=== PATIENT | female | born 1980 | race African-American/Black ===

== ENCOUNTER 2017-10-15 01:11 | Emergency (ER) | payer OTHER ==
[2017-10-15 01:36] VITALS: BP 129/80; PULSE 80; TEMP 98.5; BMI 37.5
--- NOTE | 2017-10-15 02:35 | PDOC ---
History of Present Illness - General Chief Complaint: Injury Stated Complaint: MIDDLE RIGHT FINGER INJURY Time Seen by Provider: 10/15/17 02:30 History Source: Patient Exam Limitations: No Limitations - History of Present Illness Initial Comments: This is a 37 year-old right hand dominant female with h/o hidradinitis suppurativa with MRSA infections requiring many courses of antibiotics ( currently on ciprofloxacin) and prior I&D x2 who p/w right middle finger pain and swelling at the cuticle consistent with her prior abscesses. The pain is burning/sharp 8/10 and radiates up her finger, and worsens with movement of the finger. She additionally notes swelling which has been worsening and spreading proximally up the finger. She denies any fever, chills, nausea, vomiting, headache, chest pain, SOB, streaking redness, lesions or drainage from the finger, or other symptoms. 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 However, she did not note any breaks in the skin at that time. Past History - Past Medical History Allergies/Adverse Reactions: Allergies Allergy/AdvReac Type Severity Reaction Status Date / Time ibuprofen Allergy Hives Verified 05/30/15 14:51 Penicillins Allergy Hives Verified 05/30/15 14:51 Home Medications: Ambulatory Orders Ciprofloxacin [Cipro (Restricted To Id)] 500 mg PO BID 10/15/17 Sulfamethoxazole/Trimethoprim [Bactrim Ds -] 1 tab PO BID #14 tablet 10/15/17 - Suicide/Smoking/Psychosocial Hx Smoking History: Current every day smoker Information on smoking cessation initiated: No Hx Alcohol Use: Yes Drug/Substance Use Hx: No Substance Use Type: None Review of Systems - Review of Systems Able to Perform ROS?: Yes Constitutional: No: Chills, Fever, Unexplained wgt Loss HEENTM: No: Nose Congestion, Throat Pain Respiratory: No: Cough, Shortness of Breath Cardiac (ROS): No: Chest Pain, Palpitations ABD/GI: No: Constipated, Diarrhea, Nausea, Vomiting : No: Burning, Dysuria Musculoskeletal: Yes: Other (right middle finger pain/swelling). No: Back Pain , Neck Pain Integumentary: No: Bruising, Rash Neurological: No: Headache, Numbness, Tingling, Weakness, Dizziness Endocrine: No: Unexplained Weight Gain, Unexplained Weight Loss *Physical Exam - Vital Signs Last Vital Signs Temp Pulse Resp BP Pulse Ox 98.5 F 80 17 129/80 100 10/15/17 01:10/15/17 01:10/15/17 01:10/15/17 01:10/15/17 01:26 - Physical Exam General Appearance: Yes: Nourished, Obese, Other (pleasant adult female who appears comfortable and nontoxic, answering questions appropriately). No: Apparent Distress HEENT: positive: EOMI, KADIE, Normal ENT Inspection, Normal Voice, Hearing Grossly Normal. negative: Scleral Icterus (R), Scleral Icterus (L), Nasal Congestion Neck: positive: Trachea midline, Supple. negative: Tender, Rigid Respiratory/Chest: positive: Lungs Clear, Normal Breath Sounds. negative: Respiratory Distress, Crackles, Rhonchi, Stridor, Wheezing Cardiovascular: positive: Regular Rhythm, Regular Rate, S1, S2. negative: Edema , JVD, Murmur Comments:: bilateral radial pulses equal Gastrointestinal/Abdominal: positive: Normal Bowel Sounds, Soft. negative: Tender, Organomegaly, Pulsatile Mass, Guarding Musculoskeletal: positive: Normal Inspection. negative: Decreased Range of Motion, Vertebral Tenderness Extremity: positive: Normal Capillary Refill, Normal Inspection, Normal Range of Motion, Other (right middle finger paronychia without obvious felon but with finger pad swelling, NOT holding the finger in flexion, NO ttp along the proximal tendon sheath of this finger, +ttp along the tendon sheath from the tip of the finger extending to the PIP but this is difficult to differentiate from pain d/t the actual paronychia, mild soft tissue swelling extening to MCP on the right, no streaking erythema, no lesions, no active drainage). negative : Cyanosis Integumentary: positive: Normal Color, Dry, Warm, Erythema (immediately surrounding paronychia). 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 Initial Vital Signs Temp Pulse Resp BP Pulse Ox 98.5 F 80 17 129/80 100 10/15/17 01:26 10/15/17 01:26 10/15/17 01:26 10/15/17 01:26 10/15/17 01:26 Exam: right middle finger paronychia without obvious felon but with finger pad swelling, +soft tissue swelling extending to the MCP, NOT holding the finger in flexion, NO ttp along the proximal tendon sheath of this finger, +ttp along the tendon sheath from the tip of the finger extending to the PIP but this is difficult to differentiate from pain d/t the actual paronychia. DDX IBNLT: simple paronychia, w/wo felon, flexor tenosynovitis, deeper space hand infection, gout, herpes zoster, psoriatic or rheumatoid arthritis, trauma, pseudogout, etc. W/U ordered: Right hand/finger XR TX ordered: Tylenol PO Paronychia is incised and drained as noted in procedure section, no local or nerve block, no complications. Reassessment: repeat exam is benign, patient able to move finger and feel fingertip. The patient has gotten significant relief of symptoms with ED medications and I& D. Assessment is not concerning for emergency-level pathology at this time. The patient is appropriate for discharge with close outpatient follow up. They are comfortable with this plan and will follow up with their PCP in 1-3 days. E-Rx is sent to the patient's pharmacy for Bactrim course. Return precautions are discussed and they will come back to the ER if necessary. *DC/Admit/Observation/Transfer Diagnosis at time of Disposition: Paronychia - Discharge Dispostion Disposition: HOME Condition at time of disposition: Stable Decision to Admit order: No - Prescriptions Prescriptions: Sulfamethoxazole/Trimethoprim [Bactrim Ds -] 1 tab PO BID #14 tablet - Referrals Referrals: Marsha Tirado MD [Primary Care Provider] - - Patient Instructions Printed Discharge Instructions: DI for Paronychia Additional Instructions: You were seen in the ER for a finger infection called a paronychia. We did a small incision and drainage of the infection, and removed the fluid. After our assessment, we do not believe you are having a medical emergency at this time, and we believe you are safe to go home. We are sending an electronic prescription for an antibiotic to your pharmacy. Please only pick this up if you are not feeling better in the next 2 days, and if you start taking it, do finish the whole course. It is fine to take this while finishing your current prescription for ciprofloxacin. Please follow up with your regular PCP doctor in 1-3 days. Call their clinic as soon as possible, tell them you were seen in the ER, and tell them you need an appointment. If you have any new or worsening symptoms (like worsening pain and swelling, swelling extending into the hand or wrist, inability to move the affected finger, or streaking redness migrating up your forearm), please come back to the ER at any time (24 hours a day). If you are having severe or life threatening symptoms, or symptoms that make it unsafe to drive or have someone drive you, please call 911. - Post Discharge Activity Forms/Work/School Notes: Back to Work
[2017-10-15] MEDS ORDERED: ACETAMINOPHEN 500 MG TABLET (FP) PO ONE (03:00)
[2017-10-15] MEDS ORDERED: ACETAMINOPHEN 325 MG TABLET (FP) ONE (03:15)
--- NOTE | 2017-10-15 04:10 | PDOC ---
Attending Attestation - Resident Resident Name: Irena Márquez - ED Attending Attestation I have performed the following: I have examined & evaluated the patient, The case was reviewed & discussed with the resident, I agree w/resident's findings & plan, Exceptions are as noted <Jose Bragg - Last Filed: 10/15/17 04:10> - HPI HPI: 10/15/17 04:11 The patient is a 37 year old female with a past medical history of hidradenitis suppurativa with MRSA infections and prior I&D x2 who presents with right middle finger infection and pain. The patient states that one month ago she had a manicure and she recently peeled off the gel nail kiswahili just prior to onset of symptoms. She describes the pain as 8/10 in severity, non-radiating with associated swelling and erythema. She reports that the swelling has been spreading since symptoms began. She did not try to treat symptoms at home. She denies fever, chills, nausea, and vomiting. She denies headache, chest pain, numbness, or weakness. - Physicial Exam PE: 10/15/17 04:11 GENERAL: Well-appearing, well-nourished. No apparent distress. HEENT: Normocephalic, atraumatic. PERRL, EOM intact. CARDIOVASCULAR: Normal S1, S2. Regular rate and rhythm. PULMONARY: Clear to auscultation bilaterally. ABDOMEN: Soft, non-distended, non-tender. EXTREMITIES: (+) erythematous and edematous right hand third digit Normal ROM in all four extremities. No gross deformities. SKIN: Warm, dry. No rash NEUROLOGICAL: No focal neurological deficits. - Medical Decision Making 10/15/17 04:11 Documentation prepared by Sen Hubbard, acting as medical artist for Jose Bragg DO. <Sen Hubbard - Last Filed: 10/15/17 04:11>
== END 2017-10-15 04:02 | disposition home or self-care (01) ==
LOC: JER 01:11
PROC: 0H9MXZZ Drainage of Right Foot Skin, External Approach (ICD-10-PCS; principal; 2017-10-15)
DX: L03.011 Cellulitis of right finger (principal); Z86.14 Personal history of Methicillin resistant Staphylococcus aureus infection
CPT/HCPCS: 99281-25

== ENCOUNTER 2018-04-07 10:42 | Inpatient (IN) | payer OTHER ==
--- NOTE | 2018-04-07 11:05 | PDOC ---
History of Present Illness - History of Present Illness Initial Comments: This patient is a 38 year old female with a PMHx of anemia, eczema, Hidradenitis suppurativa (HS), and was referred to the ED for admission presents to the ER for infected hidradenitis. Patient states that she has been diagnosed with HS for over an year now since she has gain a significant amount of weight. Patient states that she has pus filled bumps on in her b/l armpits, underneath b/l breasts, on her left groin and left buttox cheek. She reports that they have all been draining. She states that she saw Dr. Rucker yesterday who told her that she will need to be admitted. ID: Dr. Rucker Allergies: doxycycline (mild- sneezes), penicillin (hives) Social Hx: denies cigarette use, social drinking. <Denise Varma - Last Filed: 04/07/18 13:50> <Dale White - Last Filed: 04/07/18 15:28> - General Chief Complaint: Wound Stated Complaint: PCP ADMIT Time Seen by Provider: 04/07/18 11:04 Past History <Denise Varma - Last Filed: 04/07/18 13:50> - Past Medical History Anemia: Yes COPD: No CHF: No Kidney Stones: No Psychiatric Problems: No Other medical history: eczema,hydradenitis - Surgical History GI Surgery: No Lung Surgery: No Neurologic Surgery: No - Immunization History Immunization Up to Date: No - Suicide/Smoking/Psychosocial Hx Smoking History: Never smoked Have you smoked in the past 12 months: No Information on smoking cessation initiated: No Hx Alcohol Use: No Drug/Substance Use Hx: No Substance Use Type: None <Dale White - Last Filed: 04/07/18 15:28> - Past Medical History Allergies/Adverse Reactions: Allergies Allergy/AdvReac Type Severity Reaction Status Date / Time doxycycline Allergy Hives Verified 04/07/18 12:26 ibuprofen Allergy Hives Verified 05/30/15 14:51 Penicillins Allergy Hives Verified 05/30/15 14:51 Home Medications: Ambulatory Orders NK [No Known Home Medication] 04/07/18 Review of Systems - Review of Systems Comments:: CONSTITUTIONAL: No fever, no chills, no fatigue EYES: No visual changes ENT: No ear pain, no sore throat CARDIOVASCULAR: No chest pain, no palpitations RESPIRATORY: No cough, no SOB GI: No abdominal pain, no nausea, no vomiting, no constipation, no diarrhea GENITOURINARY: No dysuria, no frequency, no hematuria MUSKULOSKELETAL: No back pain, no joint pain, no myalgias SKIN: + pus filled pimples on b/l armpits, underneath b/l breasts, left groin and left buttox cheek. NEURO: No headache <Denise Varma - Last Filed: 04/07/18 13:50> *Physical Exam - Vital Signs Last Vital Signs Temp Pulse Resp BP Pulse Ox 98.8 F 99 H 18 112/67 99 04/07/18 10:45 04/07/18 10:45 04/07/18 10:45 04/07/18 10:45 04/07/18 10:45 - Physical Exam Comments: CONSTITUTIONAL: Well-appearing; well-nourished; in no apparent distress HEAD: Normocephalic; atraumatic EYES: PERRL; EOM intact NECK: Supple; nontender; no cervical lymphadenopathy CARD: Normal S1, S2; no murmurs, rubs, or gallops RESP: Normal chest excursion with respiration; breath sounds clear and equal bilaterally; no wheezes, rhonchi, or rales ABD: Soft, non-distended; non-tender; no palpable organomegaly, no palpable hernias EXT: Normal ROM in all four extremities; non-tender to palpation; distal pulses intact NEURO: No focal neurological deficiencies. SKIN: see MDM <Denise Varma - Last Filed: 04/07/18 13:50> - Vital Signs Last Vital Signs Temp Pulse Resp BP Pulse Ox 98.8 F 99 H 18 112/67 99 04/07/18 10:45 04/07/18 10:45 04/07/18 10:45 04/07/18 10:45 04/07/18 10:45 - Physical Exam Comments: 04/07/18 15:27 SKIN: Numerous, erythematous, indurated areas to bilateral axilla, inframammary areas and right growing with multiple niduses of fluctuance and aminah purulent drainage; <Dale White - Last Filed: 04/07/18 15:28> ED Treatment Course - LABORATORY CBC & Chemistry Diagram: 04/07/18 13:02 04/07/18 13:02 - Consult/PCP Time Called: 13:46 (Paged Brian's service) <Denise Varma - Last Filed: 04/07/18 13:50> - LABORATORY CBC & Chemistry Diagram: 04/07/18 13:02 04/07/18 13:02 <Dale White - Last Filed: 04/07/18 15:28> Medical Decision Making - Medical Decision Making 04/07/18 15:27 38-year-old female presents with multiple infected abscesses consistent with infected hidradenitis. Will admit for IV antibiotics and surgical consultation. <Dale White - Last Filed: 04/07/18 15:28> *DC/Admit/Observation/Transfer - Attestations Scribe Attestion: 04/07/18 12:33 Documentation prepared by Denise Varma, acting as medical transcription for Dale White MD. <Denise Varma - Last Filed: 04/07/18 13:50> - Discharge Dispostion Decision to Admit order: Yes - Attestations Physician Attestion: 04/07/18 15:25 The documentation was prepared by the scribe under my direct supervision. I have reviewed the documentation which correctly represents the findings, medical decision-making and critical action taken by me. <Dale White - Last Filed: 04/07/18 15:28> Diagnosis at time of Disposition: Abscess of right thigh, Hydradenitis - Discharge Dispostion Condition at time of disposition: Fair - Referrals Referrals: Marsha Tirado MD [Primary Care Provider] - - Patient Instructions - Post Discharge Activity
[2018-04-07] MEDS ORDERED: VANCOMYCIN 1,500 MG in DEXTROSE 5%-WATER - 500 ML IVPB ONE (13:11)
[2018-04-07 13:15] LABS: BASO % 0.9 % (0-2.0); EOS % 3.6 % (0-4.5); HEMATOCRIT 28.6 % (32.4-45.2); HEMOGLOBIN 8.5 GM/dL (10.7-15.3); LYMPH % 17.9 % (8-40); MCH 20.1 pg (25.7-33.7); MCHC 29.7 g/dl (32.0-36.0); MEAN CELL VOLUME 67.8 fl (80-96); MEAN PLT VOLUME 7.9 fl (7.5-11.1); MONO % 6.6 % (3.8-10.2); PLATELET COUNT 551 K/MM3 (134-434); RBC 4.21 M/mm3 (3.60-5.2); RDW 17.3 % (11.6-15.6); WHITE BLOOD COUNT 11.8 K/mm3 (4.0-10.0)
[2018-04-07 13:23] LABS: INR 1.21 (0.83-1.09); PROTHROMBIN TIME (PATIENT) 14.3 SEC (9.7-13.0)
[2018-04-07 13:43] LABS: ALK PHOS 73 U/L (45-117); ANION GAP 5 MMOL/L (8-16); BILIRUBIN,TOTAL 0.2 mg/dL (0.2-1); BLOOD UREA NITROGEN 12 mg/dL (7-18); CALCIUM 8.7 mg/dL (8.5-10.1); CHLORIDE 105 mmol/L (98-107); CO2 28 mmol/L (21-32); CREATININE 0.8 mg/dL (0.55-1.3); GLUCOSE,RANDOM 67 mg/dL (74-106); POTASSIUM 4.4 mmol/L (3.5-5.1); SGOT/AST 13 U/L (15-37); SGPT/ALT 14 U/L (13-61); SODIUM 138 mmol/L (136-145); TOT PROT 8.6 g/dl (6.4-8.2)
--- NOTE | 2018-04-07 14:24 | CON.ID ---
Consult Consult Specialty:: infectious diseases Referred by:: Reason for Consultation:: multiple abscess - History of Present Illness Chief Complaint: drainaing abscess from the breasts b/l and thigh History of Present Illness: 38 yo female with PMH anemia, eczema, hidradenitis suppurativa, and was referred to the ED for admission presents to the ER for infected hidradenitis. Patient states that she has been diagnosed with hidradenitis for over an year now since she has gain a significant amount of weight. Patient states that she has pus filled bumps on in her b/l armpits, underneath b/l breasts, on her left groin and left buttock cheek. She reports that they have all been draining. she was sen in the office and was adviced to get admitted to the hospital as she needs draiange and iv abx treatment surgery was informed of the patient who will be evaluating her patient denies any other issues - History Source History Provided By: Patient Limitations to Obtaining History: No Limitations - Alcohol/Substance Use Hx Alcohol Use: No - Smoking History Smoking history: Never smoked Have you smoked in the past 12 months: No Home Medications - Allergies Allergies/Adverse Reactions: Allergies Allergy/AdvReac Type Severity Reaction Status Date / Time doxycycline Allergy Hives Verified 04/07/18 12:26 ibuprofen Allergy Hives Verified 05/30/15 14:51 Penicillins Allergy Hives Verified 05/30/15 14:51 vancomycin AdvReac Mild Itching Verified 04/09/18 09:55 - Home Medications Home Medications: Ambulatory Orders NK [No Known Home Medication] 04/07/18 Review of Systems - Review of Systems Constitutional: reports: No Symptoms Eyes: reports: No Symptoms HENT: reports: No Symptoms Neck: reports: No Symptoms Cardiovascular: reports: No Symptoms Respiratory: reports: No Symptoms Gastrointestinal: reports: No Symptoms Genitourinary: reports: No Symptoms Breasts: reports: Other (absces present below both breasts) Musculoskeletal: reports: No Symptoms Integumentary: reports: Other (abscess on the thigh) Neurological: reports: No Symptoms Endocrine: reports: No Symptoms Hematology/Lymphatic: reports: No Symptoms Psychiatric: reports: No Symptoms Physical Exam Vital Signs: Vital Signs Temperature 98.8 F 04/07/18 10:45 Pulse Rate 99 H 04/07/18 10:45 Respiratory Rate 18 04/07/18 10:45 Blood Pressure 112/67 04/07/18 10:45 O2 Sat by Pulse Oximetry (%) 99 04/07/18 10:45 Constitutional: Yes: Well Nourished, No Distress, Calm, Obese HENT: Yes: Atraumatic Neck: Yes: Supple, Trachea Midline Cardiovascular: Yes: Regular Rate and Rhythm Respiratory: Yes: Regular, CTA Bilaterally Gastrointestinal: Yes: Normal Bowel Sounds, Soft Musculoskeletal: Yes: WNL Extremities: Yes: WNL Integumentary: Yes: Other (es: Other (Draining and ingurated areas: bilateral inframamary folds medially, right inner thigh, left infragluteal fold).) Wound/Incision: Yes: Draining Neurological: Yes: Alert, Oriented Psychiatric: Yes: Alert, Oriented Labs: CBC, BMP 04/07/18 13:02 04/07/18 13:02 Assessment/Plan Problem List - Problems (1) Hydradenitis Code(s): L73.2 - HIDRADENITIS SUPPURATIVA (2) Chronic abscess of breast Code(s): N61.1 - ABSCESS OF THE BREAST AND NIPPLE (3) Abscess of buttock, left Code(s): L02.31 - CUTANEOUS ABSCESS OF BUTTOCK (4) Anemia Code(s): D64.9 - ANEMIA, UNSPECIFIED (5) Abscess of right thigh Code(s): L02.415 - CUTANEOUS ABSCESS OF RIGHT LOWER LIMB plan await for surgical consult will start patient on vanco and zosyn rest continue current mgmt final decision to be made on cx once i and d done
--- NOTE | 2018-04-07 16:04 | CONSULT ---
Consult Consult Specialty:: General Surgery Reason for Consultation:: Hidradenitis - History of Present Illness Chief Complaint: hidradenitis History of Present Illness: 38 yo female with PMH anemia, eczema, hidradenitis suppurativa, and was referred to the ED for admission presents to the ER for infected hidradenitis. Patient states that she has been diagnosed with hidradenitis for over an year now since she has gain a significant amount of weight. Patient states that she has pus filled bumps on in her b/l armpits, underneath b/l breasts, on her left groin and left buttock cheek. She reports that they have all been draining. She states that she saw Dr. Rucker yesterday who told her that she will need to be admitted. We were asked to assess. - History Source History Provided By: Patient, Medical Record Limitations to Obtaining History: No Limitations - Alcohol/Substance Use Hx Alcohol Use: No - Smoking History Smoking history: Never smoked Have you smoked in the past 12 months: No - Social History Place of : [facility] History of Recent Travel: No Home Medications - Allergies Allergies/Adverse Reactions: Allergies Allergy/AdvReac Type Severity Reaction Status Date / Time doxycycline Allergy Hives Verified 04/07/18 12:26 ibuprofen Allergy Hives Verified 05/30/15 14:51 Penicillins Allergy Hives Verified 05/30/15 14:51 - Home Medications Home Medications: Ambulatory Orders NK [No Known Home Medication] 04/07/18 Review of Systems - Review of Systems Constitutional: denies: Chills, Fever Eyes: denies: Blind Spots, Recent Change in Vision HENT: denies: Difficult Swallowing, Throat Pain Neck: denies: Pain on Movement, Tenderness Cardiovascular: denies: Chest Pain, Palpitations Respiratory: denies: Cough, SOB Gastrointestinal: denies: Abdominal Pain, Constipation, Diarrhea Genitourinary: denies: Discharge, Dysuria Breasts: reports: No Symptoms Reported. denies: Pain Musculoskeletal: denies: Muscle Pain, Muscle Weakness Integumentary: reports: Lesions, Wound. denies: Erythema, Rash Neurological: denies: Seizure, Syncope Endocrine: denies: Unexplained Weight Gain, Unexplained Weight Loss Hematology/Lymphatic: denies: Easily Bruised, Excessive Bleeding Psychiatric: denies: Anxiety, Depression Physical Exam Vital Signs: Vital Signs Temperature 98.8 F 04/07/18 10:45 Pulse Rate 99 H 04/07/18 10:45 Respiratory Rate 18 04/07/18 10:45 Blood Pressure 112/67 04/07/18 10:45 O2 Sat by Pulse Oximetry (%) 99 04/07/18 10:45 Vital Signs Period Temp Pulse Resp BP Sys/Benito Pulse Ox Last 24 Hr 98.7 F-99.2 F 91-99 18-18 112-131/67-72 98-99 Constitutional: Yes: Well Nourished, No Distress, Calm Eyes: Yes: Conjunctiva Clear, EOM Intact HENT: Yes: Atraumatic, Normocephalic Neck: Yes: Supple, Trachea Midline Cardiovascular: Yes: Regular Rate and Rhythm, S1, S2 Respiratory: Yes: Regular, CTA Bilaterally Gastrointestinal: Yes: Normal Bowel Sounds, Soft. No: Tenderness ...Rectal Exam: Yes: Deferred Renal/: No: CVA Tenderness - Left, CVA Tenderness - Right Musculoskeletal: No: Muscle Pain, Muscle Weakness Extremities: No: Cool, Cyanosis Edema: No Peripheral Pulses WNL: Yes Integumentary: Yes: Other (Draining and ingurated areas: bilateral inframamary folds medially, right inner thigh, left infragluteal fold). No: Incision, Jaundice Neurological: Yes: Alert, Oriented Psychiatric: Yes: Alert, Oriented Labs: CBC, BMP 04/07/18 13:02 04/07/18 13:02 Problem List - Problems (1) Hydradenitis Assessment/Plan: 38yo female with hidradenitis Draining and ingurated areas: bilateral inframammary folds medially, right inner thigh, left infragluteal fold NPO and IVF hydration IV antibiotics discharge planning with VNS Incision and drainage bilateral inframammary folds medially, right inner thigh, left infragluteal fold Discussed with patient risks, benefits and alternatives of aforementioned procedure including but not limited to bleeding, infection, injury to adjacent structures, leak or injury, intraabdominal abscess, incisional hernia, need for further procedures, ; alternatives include antibiotics, delayed or no surgery - risks of this include failure of nonoperative therapy, perforation, sepsis, recurrence, . Patient desires to proceed with operation - will take to OR for above. Informed consent signed for same. Thank you for the opportunity to participate in the care of this patient. Code(s): L73.2 - HIDRADENITIS SUPPURATIVA (2) Chronic abscess of breast Code(s): N61.1 - ABSCESS OF THE BREAST AND NIPPLE (3) Abscess of buttock, left Code(s): L02.31 - CUTANEOUS ABSCESS OF BUTTOCK (4) Anemia Code(s): D64.9 - ANEMIA, UNSPECIFIED (5) Abscess of right thigh Code(s): L02.415 - CUTANEOUS ABSCESS OF RIGHT LOWER LIMB
--- NOTE | 2018-04-07 16:46 | HP ---
Admitting History and Physical - Primary Care Physician PCP: Marjorie Torres - Admission Chief Complaint: skin lesions History of Present Illness: 38 year old female with a PMHx of anemia, eczema, Hidradenitis suppurativa (HS) , and was referred to the ED for admission presents to the ER for infected hidradenitis. Patient states that she has been diagnosed with HS for over an year now since she has gain a significant amount of weight. Patient states that she has pus filled bumps on in her b/l armpits, underneath b/l breasts, on her left groin and left buttox cheek. She reports that they have all been draining. She states that she saw Dr. Rucker yesterday who told her that she will need to be admitted. - Smoking History Smoking history: Never smoked Have you smoked in the past 12 months: No - Alcohol/Substance Use Hx Alcohol Use: No Home Medications - Allergies Allergies/Adverse Reactions: Allergies Allergy/AdvReac Type Severity Reaction Status Date / Time doxycycline Allergy Hives Verified 04/07/18 12:26 ibuprofen Allergy Hives Verified 05/30/15 14:51 Penicillins Allergy Hives Verified 05/30/15 14:51 vancomycin AdvReac Mild Itching Verified 04/09/18 09:55 - Home Medications Home Medications: Ambulatory Orders Clindamycin [Cleocin -] 300 mg PO Q6HPO #20 capsule 04/12/18 Physical Examination Vital Signs: Vital Signs Temperature 98.8 F 04/07/18 10:45 Pulse Rate 99 H 04/07/18 10:45 Respiratory Rate 18 04/07/18 10:45 Blood Pressure 112/67 04/07/18 10:45 O2 Sat by Pulse Oximetry (%) 99 04/07/18 10:45 Constitutional: Yes: No Distress HENT: Yes: Atraumatic Neck: Yes: Supple Cardiovascular: Yes: Regular Rate and Rhythm Respiratory: Yes: CTA Bilaterally Gastrointestinal: Yes: Normal Bowel Sounds Extremities: Yes: WNL Edema: No Peripheral Pulses WNL: Yes Integumentary: Yes: Other (abcess R thigh, left buttock, bothe breast) Neurological: Yes: Alert, Oriented ...Motor Strength: WNL Labs: CBC, BMP 04/07/18 13:02 04/07/18 13:02 Problem List - Problems (1) Abscess of right thigh Assessment/Plan: iv abx for I and d Code(s): L02.415 - CUTANEOUS ABSCESS OF RIGHT LOWER LIMB (2) Hydradenitis Assessment/Plan: on abx Code(s): L73.2 - HIDRADENITIS SUPPURATIVA (3) Abscess of left thigh Assessment/Plan: on abx s/p i and d Code(s): L02.416 - CUTANEOUS ABSCESS OF LEFT LOWER LIMB Assessment/Plan Laboratory Tests 04/07/18 04/07/18 04/07/18 12:40 13:02 13:02 WBC 11.8 H RBC 4.21 Hgb 8.5 L Hct 28.6 L MCV 67.8 L MCH 20.1 L MCHC 29.7 L RDW 17.3 H Plt Count 551 H MPV 7.9 Absolute Neuts (auto) 8.3 H Neutrophils % 71.0 Lymphocytes % 17.9 Monocytes % 6.6 Eosinophils % 3.6 Basophils % 0.9 Nucleated RBC % 0 PT with INR 14.30 H INR 1.21 H Sodium Potassium Chloride Carbon Dioxide Anion Gap BUN Creatinine Creat Clearance w eGFR Random Glucose Calcium Total Bilirubin AST ALT Alkaline Phosphatase Total Protein Albumin Blood Type O POSITIVE Antibody Screen Negative 04/07/18 13:02 WBC RBC Hgb Hct MCV MCH MCHC RDW Plt Count MPV Absolute Neuts (auto) Neutrophils % Lymphocytes % Monocytes % Eosinophils % Basophils % Nucleated RBC % PT with INR INR Sodium 138 Potassium 4.4 Chloride 105 Carbon Dioxide 28 Anion Gap 5 L BUN 12 Creatinine 0.8 Creat Clearance w eGFR > 60 Random Glucose 67 L Calcium 8.7 Total Bilirubin 0.2 AST 13 L ALT 14 Alkaline Phosphatase 73 Total Protein 8.6 H Albumin 3.0 L Blood Type Antibody Screen Active Medications Generic Name Dose Route Start Last Admin Trade Name Freq PRN Reason Stop Dose Admin Vancomycin HCl 1,250 mg/ 250 mls @ 166.667 mls/hr 04/08/18 15:00 Dextrose IVPB DAILY@1500 [facility] Protocol Aztreonam 1 gm/ Dextrose 50 mls @ 100 mls/hr 04/07/18 15:15 IVPB Q8H-IV ENRIQUE Protocol
[2018-04-07] MEDS ORDERED: ACETAMINOPHEN 325 MG TABLET (FP) PO PRN (16:49)
[2018-04-07 17:56] VITALS: BMI 36.5
[2018-04-07] MEDS: AZTREONAM 1 GM in DEXTROSE 5%-WATER - 50 ML IVPB SCH ×2 (18:15→20:40)
[2018-04-07] MEDS ORDERED: D5-1/2NS+20 MEQ KCL - 20 MEQ/1,000 ML INFUS.BAG IV SCH (19:45)
[2018-04-07] MEDS ORDERED: PT OWN MED DRAWER 7, Y5N ONE (20:06)
[2018-04-08] MEDS ORDERED: PT OWN MED DRAWER 7, Y5N ONE ×3 (01:50→18:26)
[2018-04-08] MEDS: AZTREONAM 1 GM in DEXTROSE 5%-WATER - 50 ML IVPB SCH ×3 (02:08→18:31)
[2018-04-08 07:15] LABS: BASO % 0.4 % (0-2.0); EOS % 4.1 % (0-4.5); HEMATOCRIT 28.3 % (32.4-45.2); HEMOGLOBIN 8.4 GM/dL (10.7-15.3); MCH 20.1 pg (25.7-33.7); MCHC 29.6 g/dl (32.0-36.0); MEAN PLT VOLUME 7.6 fl (7.5-11.1); MONO % 6.5 % (3.8-10.2); PLATELET COUNT 512 K/MM3 (134-434); RBC 4.16 M/mm3 (3.60-5.2); RDW 17.4 % (11.6-15.6); WHITE BLOOD COUNT 11.1 K/mm3 (4.0-10.0)
[2018-04-08 07:36] LABS: ALBUMIN 2.8 g/dl (3.4-5.0); ALK PHOS 71 U/L (45-117); ANION GAP 7 MMOL/L (8-16); BILIRUBIN,TOTAL 0.3 mg/dL (0.2-1); BLOOD UREA NITROGEN 10 mg/dL (7-18); CALCIUM 8.3 mg/dL (8.5-10.1); CHLORIDE 105 mmol/L (98-107); CO2 27 mmol/L (21-32); CREATININE 0.7 mg/dL (0.55-1.3); GLUCOSE,RANDOM 73 mg/dL (74-106); POTASSIUM 4.3 mmol/L (3.5-5.1); SGOT/AST 9 U/L (15-37); SGPT/ALT 15 U/L (13-61); SODIUM 139 mmol/L (136-145); TOT PROT 8.2 g/dl (6.4-8.2)
--- NOTE | 2018-04-08 12:54 | PN ---
Progress Note, Physician History of Present Illness: patient stable awaiting surgery patient says she feels a bit flushed after getting vanco no other issues - Current Medication List Current Medications: Active Medications Acetaminophen (Tylenol -) 650 mg PO Q6H PRN PRN Reason: FEVER Vancomycin HCl 1,250 mg/ (Dextrose) 250 mls @ 166.667 mls/hr IVPB DAILY@1500 ENRIQUE; Protocol Aztreonam 1 gm/ Dextrose 50 mls @ 100 mls/hr IVPB Q8H-IV ENRIQUE; Protocol Last Admin: 04/08/18 09:44 Dose: 100 mls/hr Potassium Chloride/Dextrose/Sod Cl (D5-1/2ns+20 Meq Kcl -) 20 meq in 1,000 mls @ 83 mls/hr IV ASDIR ENRIQUE Last Admin: 04/07/18 22:08 Dose: 83 mls/hr - Objective Vital Signs: Vital Signs Temperature 98.5 F 04/08/18 06:00 Pulse Rate 77 04/08/18 06:00 Respiratory Rate 18 04/08/18 06:00 Blood Pressure 101/64 04/08/18 06:00 O2 Sat by Pulse Oximetry (%) 98 04/07/18 21:00 Constitutional: Yes: No Distress, Calm, Obese Cardiovascular: Yes: Regular Rate and Rhythm Respiratory: Yes: Regular, CTA Bilaterally Gastrointestinal: Yes: Normal Bowel Sounds, Soft Breast(s): Yes: Other Musculoskeletal: Yes: WNL Extremities: Yes: WNL Integumentary: Yes: Other (as described) Wound/Incision: Yes: Draining Neurological: Yes: Alert, Oriented Psychiatric: Yes: Alert, Oriented Labs: CBC, BMP 04/08/18 06:00 04/08/18 06:00 INR, PTT INR 1.21 (0.83-1.09) H 04/07/18 13:02 Assessment/Plan Problem List - Problems (1) Hydradenitis Code(s): L73.2 - HIDRADENITIS SUPPURATIVA (2) Chronic abscess of breast Code(s): N61.1 - ABSCESS OF THE BREAST AND NIPPLE (3) Abscess of buttock, left Code(s): L02.31 - CUTANEOUS ABSCESS OF BUTTOCK (4) Anemia Code(s): D64.9 - ANEMIA, UNSPECIFIED (5) Abscess of right thigh Code(s): L02.415 - CUTANEOUS ABSCESS OF RIGHT LOWER LIMB plan awaiting surgery will hold of vanco and switch to clinda
[2018-04-08] MEDS ORDERED: VANCOMYCIN 1,250 MG in DEXTROSE 5%-WATER - 250 ML IVPB SCH (15:00)
--- NOTE | 2018-04-08 18:11 | PN ---
Progress Note, Physician - Current Medication List Current Medications: Active Medications Acetaminophen (Tylenol -) 650 mg PO Q6H PRN PRN Reason: FEVER Aztreonam 1 gm/ Dextrose 50 mls @ 100 mls/hr IVPB Q8H-IV ENRIQUE; Protocol Last Admin: 04/08/18 09:44 Dose: 100 mls/hr Potassium Chloride/Dextrose/Sod Cl (D5-1/2ns+20 Meq Kcl -) 20 meq in 1,000 mls @ 83 mls/hr IV ASDIR ENRIQUE Last Admin: 04/07/18 22:08 Dose: 83 mls/hr Clindamycin Phosphate (Cleocin 300 Mg Premix Ivpb) 300 mg in 50 mls @ 50 mls/ hr IVPB Q6H-IV ENRIQUE - Objective Vital Signs: Vital Signs Temperature 99.1 F 04/08/18 17:16 Pulse Rate 88 04/08/18 17:16 Respiratory Rate 20 04/08/18 17:16 Blood Pressure 119/69 04/08/18 17:16 O2 Sat by Pulse Oximetry (%) 98 04/07/18 21:00 Constitutional: Yes: No Distress HENT: Yes: Atraumatic Neck: Yes: Supple Cardiovascular: Yes: Regular Rate and Rhythm Respiratory: Yes: CTA Bilaterally Gastrointestinal: Yes: Normal Bowel Sounds Extremities: Yes: WNL Edema: No Neurological: Yes: Alert, Oriented Labs: CBC, BMP 04/08/18 06:00 04/08/18 06:00 INR, PTT INR 1.21 (0.83-1.09) H 04/07/18 13:02 Problem List - Problems (1) Abscess of right thigh Assessment/Plan: iv abx for i and d id and surgery on board Code(s): L02.415 - CUTANEOUS ABSCESS OF RIGHT LOWER LIMB (2) Hydradenitis Assessment/Plan: on abx Code(s): L73.2 - HIDRADENITIS SUPPURATIVA (3) Abscess of left thigh Assessment/Plan: on abx s/p i and d Code(s): L02.416 - CUTANEOUS ABSCESS OF LEFT LOWER LIMB
[2018-04-08] MEDS ORDERED: morphine SULFATE 4 MG/ML VIAL IVPUSH PRN ×2 (20:30→22:34)
--- NOTE | 2018-04-08 20:30 | OP ---
Operative Note - Note: Operative Date: 04/08/18 Pre-Operative Diagnosis: hidradenitis supperativa Operation: incision and drainge of bilateral inframammary folds, right inner thigh, left infragluteal fold Implants: none Post-Operative Diagnosis: Same as Pre-op Surgeon: Miky Hayden Anesthesiologist/RANGE OPERATOR: Ming Carbajal Anesthesia: General, Local Specimens Removed: cultures: right thigh, right breast, left breast Estimated Blood Loss (mls): 20 Fluid Volume Replaced (mls): 800 Operative Report Dictated: Yes
[2018-04-08] MEDS ORDERED: IBUPROFEN 600 MG TABLET (FP) PO PRN ×2 (20:31→22:34)
[2018-04-08] MEDS ORDERED: ACETAMINOPHEN 325 MG TABLET (FP) PO PRN ×2 (20:31→22:34)
[2018-04-08] MEDS ORDERED: MIDAZOLAM HCL 2 MG/2 ML SINGLE DOSE VIAL ONE (20:57)
[2018-04-08] MEDS ORDERED: DEXAMETHASONE SOD PHOSPHATE 4 MG/1 ML VIAL ONE (21:16)
[2018-04-08] MEDS ORDERED: ONDANSETRON 4 MG/2 ML VIAL ONE (21:16)
[2018-04-08] MEDS ORDERED: ONDANSETRON 4 MG/2 ML VIAL IVPUSH PRN (21:32)
[2018-04-08] MEDS: D5-1/2NS+20 MEQ KCL - 20 MEQ/1,000 ML INFUS.BAG IV SCH (22:50)
[2018-04-08] MEDS: LACTATED RINGERS SOLUTION 1,000 ML IV SCH (23:18)
[2018-04-09] MEDS ORDERED: PT OWN MED DRAWER 7, Y5N ONE ×7 (01:25→21:35)
[2018-04-09] MEDS: AZTREONAM 1 GM in DEXTROSE 5%-WATER - 50 ML IVPB SCH ×3 (01:30→17:03)
--- NOTE | 2018-04-09 08:19 | PN ---
Progress Note, Physician Chief Complaint: day 1 s/p IandD of hidradenitis abscess - Current Medication List Current Medications: Active Medications Acetaminophen (Tylenol -) 650 mg PO Q6H PRN PRN Reason: PAIN LEVEL 1-5 Lactated Ringer's (Lactated Ringers Solution) 1,000 mls @ 125 mls/hr IV ASDIR ENRIQUE Last Admin: 04/08/18 23:18 Dose: Not Given Aztreonam 1 gm/ Dextrose 50 mls @ 100 mls/hr IVPB Q8H-IV ENRIQUE; Protocol Last Admin: 04/09/18 01:30 Dose: 100 mls/hr Clindamycin Phosphate (Cleocin 300 Mg Premix Ivpb) 300 mg in 50 mls @ 50 mls/ hr IVPB Q6H-IV ENRIQUE Potassium Chloride/Dextrose/Sod Cl (D5-1/2ns+20 Meq Kcl -) 20 meq in 1,000 mls @ 83 mls/hr IV ASDIR ENRIQUE Last Admin: 04/08/18 22:50 Dose: 0 mls Ibuprofen (Motrin -) 600 mg PO Q6H PRN PRN Reason: PAIN LEVEL 1-5 Morphine Sulfate (Morphine Sulfate) 4 mg IVPUSH Q4H PRN PRN Reason: PAIN LEVEL 7 - 10 Ondansetron HCl (Zofran Injection) 4 mg IVPUSH Q6H PRN PRN Reason: NAUSEA AND/OR VOMITING - Objective Vital Signs: Vital Signs Temperature 98.0 F 04/09/18 06:00 Pulse Rate 75 04/09/18 06:00 Respiratory Rate 20 04/09/18 06:00 Blood Pressure 103/64 04/09/18 06:00 O2 Sat by Pulse Oximetry (%) 100 04/08/18 23:50 Labs: CBC, BMP 04/08/18 06:00 04/08/18 06:00 INR, PTT INR 1.21 (0.83-1.09) H 04/07/18 13:02 Assessment/Plan Doing well after GA for abscess removal. No anesthetic issues/complications.
[2018-04-09] MEDS ORDERED: CLINDAMYCIN 300 MG PREMIX IVPB 300 MG/50 ML BAG IVPB SCH (09:00)
[2018-04-09] MEDS: CLINDAMYCIN 300 MG PREMIX IVPB 300 MG/50 ML BAG IVPB SCH ×3 (09:09→21:38)
--- NOTE | 2018-04-09 11:58 | PN ---
Progress Note, Physician Chief Complaint: hidradenitis History of Present Illness: 38 yo female with PMH anemia, eczema, hidradenitis suppurativa, and was referred to the ED for admission presents to the ER for infected hidradenitis. Patient states that she has been diagnosed with hidradenitis for over an year now since she has gain a significant amount of weight. Patient states that she has pus filled bumps on in her b/l armpits, underneath b/l breasts, on her left groin and left buttock cheek. She reports that they have all been draining. She states that she saw Dr. Rucker yesterday who told her that she will need to be admitted. We were asked to assess. - Current Medication List Current Medications: Active Medications Acetaminophen (Tylenol -) 650 mg PO Q6H PRN PRN Reason: PAIN LEVEL 1-5 Lactated Ringer's (Lactated Ringers Solution) 1,000 mls @ 125 mls/hr IV ASDIR ENRIQUE Last Admin: 04/08/18 23:18 Dose: Not Given Aztreonam 1 gm/ Dextrose 50 mls @ 100 mls/hr IVPB Q8H-IV ENRIQUE; Protocol Last Admin: 04/09/18 10:22 Dose: 100 mls/hr Clindamycin Phosphate (Cleocin 300 Mg Premix Ivpb) 300 mg in 50 mls @ 50 mls/ hr IVPB Q6H-IV ENRIQUE Last Admin: 04/09/18 09:09 Dose: 50 mls/hr Potassium Chloride/Dextrose/Sod Cl (D5-1/2ns+20 Meq Kcl -) 20 meq in 1,000 mls @ 83 mls/hr IV ASDIR ENRIQUE Last Admin: 04/08/18 22:50 Dose: 0 mls Ibuprofen (Motrin -) 600 mg PO Q6H PRN PRN Reason: PAIN LEVEL 1-5 Morphine Sulfate (Morphine Sulfate) 4 mg IVPUSH Q4H PRN PRN Reason: PAIN LEVEL 7 - 10 Ondansetron HCl (Zofran Injection) 4 mg IVPUSH Q6H PRN PRN Reason: NAUSEA AND/OR VOMITING - Objective Vital Signs: Vital Signs Temperature 98.6 F 04/09/18 10:00 Pulse Rate 69 04/09/18 10:00 Respiratory Rate 20 04/09/18 10:00 Blood Pressure 111/56 L 10/26/18 10:00 O2 Sat by Pulse Oximetry (%) 100 04/08/18 23:50 Vital Signs Period Temp Pulse Resp BP Sys/Benito Pulse Ox Last 24 Hr 97.9 F-99.1 F 69-88 16-20 103-120/56-69 100-100 Constitutional: Yes: No Distress, Calm, Obese Eyes: Yes: Conjunctiva Clear, EOM Intact HENT: Yes: Atraumatic, Normocephalic Neck: Yes: Supple, Trachea Midline Cardiovascular: Yes: Regular Rate and Rhythm, S1, S2 Respiratory: Yes: Regular, CTA Bilaterally Gastrointestinal: Yes: Normal Bowel Sounds, Soft. No: Tenderness ...Rectal Exam: Yes: Deferred Genitourinary: No: CVA Tenderness - Left, CVA Tenderness - Right Musculoskeletal: No: Muscle Pain, Muscle Weakness Extremities: No: Cool, Cyanosis Edema: No Peripheral Pulses WNL: Yes Peripheral Pulses: Left Radial: 2+, Right Radial: 2+, Left Doralis Pedis: 2+, Right Dorsalis Pedis: 2+ Integumentary: No: Erythema, Jaundice, Rash, Venous Stasis Changes Wound/Incision: Yes: Clean/Dry, Unapproximated (right inner thigh, left lower gluteal, bilateral inframamary fold/ breasts). No: Reddened, Bleeding Neurological: Yes: Alert, Oriented Psychiatric: Yes: Alert, Oriented Labs: CBC, BMP 04/08/18 06:00 04/08/18 06:00 INR, PTT INR 1.21 (0.83-1.09) H 04/07/18 13:02 Problem List - Problems (1) Hydradenitis Assessment/Plan: 38yo female with hidradenitis Draining and ingurated areas: bilateral inframammary folds medially, right inner thigh, left infragluteal fold POD#1 s/ p incision and drainage of multiple sites. IV antibiotics local wound care adequate analgesia discharge planning with VNS Code(s): L73.2 - HIDRADENITIS SUPPURATIVA (2) Chronic abscess of breast Code(s): N61.1 - ABSCESS OF THE BREAST AND NIPPLE (3) Abscess of buttock, left Code(s): L02.31 - CUTANEOUS ABSCESS OF BUTTOCK (4) Anemia Code(s): D64.9 - ANEMIA, UNSPECIFIED (5) Abscess of right thigh Code(s): L02.415 - CUTANEOUS ABSCESS OF RIGHT LOWER LIMB
--- NOTE | 2018-04-09 12:09 | PN ---
Progress Note, Physician - Current Medication List Current Medications: Active Medications Acetaminophen (Tylenol -) 650 mg PO Q6H PRN PRN Reason: PAIN LEVEL 1-5 Lactated Ringer's (Lactated Ringers Solution) 1,000 mls @ 125 mls/hr IV ASDIR ENRIQUE Last Admin: 04/08/18 23:18 Dose: Not Given Aztreonam 1 gm/ Dextrose 50 mls @ 100 mls/hr IVPB Q8H-IV ENRIQUE; Protocol Last Admin: 04/09/18 10:22 Dose: 100 mls/hr Clindamycin Phosphate (Cleocin 300 Mg Premix Ivpb) 300 mg in 50 mls @ 50 mls/ hr IVPB Q6H-IV ENRIQUE Last Admin: 04/09/18 09:09 Dose: 50 mls/hr Potassium Chloride/Dextrose/Sod Cl (D5-1/2ns+20 Meq Kcl -) 20 meq in 1,000 mls @ 83 mls/hr IV ASDIR ENRIQUE Last Admin: 04/08/18 22:50 Dose: 0 mls Ibuprofen (Motrin -) 600 mg PO Q6H PRN PRN Reason: PAIN LEVEL 1-5 Morphine Sulfate (Morphine Sulfate) 4 mg IVPUSH Q4H PRN PRN Reason: PAIN LEVEL 7 - 10 Ondansetron HCl (Zofran Injection) 4 mg IVPUSH Q6H PRN PRN Reason: NAUSEA AND/OR VOMITING - Objective Vital Signs: Vital Signs Temperature 98.6 F 04/09/18 10:00 Pulse Rate 69 04/09/18 10:00 Respiratory Rate 20 04/09/18 10:00 Blood Pressure 111/56 L 04/09/18 10:00 O2 Sat by Pulse Oximetry (%) 100 04/08/18 23:50 Labs: CBC, BMP 04/08/18 06:00 04/08/18 06:00 INR, PTT INR 1.21 (0.83-1.09) H 04/07/18 13:02
--- NOTE | 2018-04-09 18:20 | PN ---
Progress Note, Physician - Current Medication List Current Medications: Active Medications Acetaminophen (Tylenol -) 650 mg PO Q6H PRN PRN Reason: PAIN LEVEL 1-5 Lactated Ringer's (Lactated Ringers Solution) 1,000 mls @ 125 mls/hr IV ASDIR ENRIQUE Last Admin: 04/08/18 23:18 Dose: Not Given Aztreonam 1 gm/ Dextrose 50 mls @ 100 mls/hr IVPB Q8H-IV ENRIQUE; Protocol Last Admin: 04/09/18 17:03 Dose: 100 mls/hr Clindamycin Phosphate (Cleocin 300 Mg Premix Ivpb) 300 mg in 50 mls @ 50 mls/ hr IVPB Q6H-IV ENRIQUE Last Admin: 04/09/18 14:24 Dose: 50 mls/hr Potassium Chloride/Dextrose/Sod Cl (D5-1/2ns+20 Meq Kcl -) 20 meq in 1,000 mls @ 83 mls/hr IV ASDIR ENRIQUE Last Admin: 04/08/18 22:50 Dose: 0 mls Ibuprofen (Motrin -) 600 mg PO Q6H PRN PRN Reason: PAIN LEVEL 1-5 Morphine Sulfate (Morphine Sulfate) 4 mg IVPUSH Q4H PRN PRN Reason: PAIN LEVEL 7 - 10 Ondansetron HCl (Zofran Injection) 4 mg IVPUSH Q6H PRN PRN Reason: NAUSEA AND/OR VOMITING - Objective Vital Signs: Vital Signs Temperature 98.7 F 04/09/18 17:19 Pulse Rate 87 04/09/18 17:19 Respiratory Rate 20 04/09/18 17:19 Blood Pressure 101/61 04/09/18 17:19 O2 Sat by Pulse Oximetry (%) 100 04/08/18 23:50 Constitutional: Yes: No Distress HENT: Yes: Atraumatic Neck: Yes: Supple Cardiovascular: Yes: Regular Rate and Rhythm Respiratory: Yes: CTA Bilaterally Gastrointestinal: Yes: Normal Bowel Sounds Extremities: Yes: WNL Edema: No Peripheral Pulses WNL: Yes Integumentary: Yes: Other (abcesses) Labs: CBC, BMP 04/08/18 06:00 04/08/18 06:00 INR, PTT INR 1.21 (0.83-1.09) H 04/07/18 13:02 Problem List - Problems (1) Abscess of right thigh Assessment/Plan: iv abx s/p I and d Code(s): L02.415 - CUTANEOUS ABSCESS OF RIGHT LOWER LIMB (2) Hydradenitis Assessment/Plan: on abx Code(s): L73.2 - HIDRADENITIS SUPPURATIVA (3) Abscess of left thigh Assessment/Plan: on abx s/p i and d Code(s): L02.416 - CUTANEOUS ABSCESS OF LEFT LOWER LIMB
[2018-04-10] MEDS ORDERED: PT OWN MED DRAWER 7, Y5N ONE ×4 (01:00→20:49)
[2018-04-10] MEDS: AZTREONAM 1 GM in DEXTROSE 5%-WATER - 50 ML IVPB SCH ×3 (01:09→17:33)
[2018-04-10] MEDS: CLINDAMYCIN 300 MG PREMIX IVPB 300 MG/50 ML BAG IVPB SCH ×4 (03:08→21:21)
[2018-04-10] MEDS: D5-1/2NS+20 MEQ KCL - 20 MEQ/1,000 ML INFUS.BAG IV SCH ×2 (05:44→21:44)
[2018-04-10] MEDS: LACTATED RINGERS SOLUTION 1,000 ML IV SCH ×2 (11:12→21:21)
--- NOTE | 2018-04-10 11:54 | PN ---
Progress Note, Physician Chief Complaint: hidradenitis History of Present Illness: 38 yo female with PMH anemia, eczema, hidradenitis suppurativa, and was referred to the ED for admission presents to the ER for infected hidradenitis. She has been stable postoperatively. - Current Medication List Current Medications: Active Medications Acetaminophen (Tylenol -) 650 mg PO Q6H PRN PRN Reason: PAIN LEVEL 1-5 Lactated Ringer's (Lactated Ringers Solution) 1,000 mls @ 125 mls/hr IV ASDIR ENRIQUE Last Admin: 04/10/18 11:12 Dose: Not Given Aztreonam 1 gm/ Dextrose 50 mls @ 100 mls/hr IVPB Q8H-IV ENRIQUE; Protocol Last Admin: 04/10/18 09:51 Dose: 100 mls/hr Clindamycin Phosphate (Cleocin 300 Mg Premix Ivpb) 300 mg in 50 mls @ 50 mls/ hr IVPB Q6H-IV ENRIQUE Last Admin: 04/10/18 09:51 Dose: 50 mls/hr Potassium Chloride/Dextrose/Sod Cl (D5-1/2ns+20 Meq Kcl -) 20 meq in 1,000 mls @ 83 mls/hr IV ASDIR ENRIQUE Last Admin: 04/10/18 05:44 Dose: 83 mls/hr Ibuprofen (Motrin -) 600 mg PO Q6H PRN PRN Reason: PAIN LEVEL 1-5 Morphine Sulfate (Morphine Sulfate) 4 mg IVPUSH Q4H PRN PRN Reason: PAIN LEVEL 7 - 10 Ondansetron HCl (Zofran Injection) 4 mg IVPUSH Q6H PRN PRN Reason: NAUSEA AND/OR VOMITING - Objective Vital Signs: Vital Signs Temperature 99.0 F 04/10/18 06:00 Pulse Rate 81 04/10/18 06:00 Respiratory Rate 20 04/10/18 06:00 Blood Pressure 108/64 04/10/18 06:00 O2 Sat by Pulse Oximetry (%) 100 04/09/18 21:00 Labs: CBC, BMP 04/08/18 06:00 04/08/18 06:00 INR, PTT INR 1.21 (0.83-1.09) H 04/07/18 13:02 Problem List - Problems (1) Hydradenitis Assessment/Plan: 38yo female with hidradenitis Draining and ingurated areas: bilateral inframammary folds medially, right inner thigh, left infragluteal fold POD#2 s/ p incision and drainage of multiple sites. IV antibiotics local wound care adequate analgesia discharge planning with VNS Code(s): L73.2 - HIDRADENITIS SUPPURATIVA (2) Chronic abscess of breast Code(s): N61.1 - ABSCESS OF THE BREAST AND NIPPLE (3) Abscess of buttock, left Code(s): L02.31 - CUTANEOUS ABSCESS OF BUTTOCK (4) Anemia Code(s): D64.9 - ANEMIA, UNSPECIFIED (5) Abscess of right thigh Code(s): L02.415 - CUTANEOUS ABSCESS OF RIGHT LOWER LIMB
--- NOTE | 2018-04-10 17:08 | PN ---
Progress Note, Physician History of Present Illness: Pt doing well. Wounds packed and dressed by surgery today. She is afebrile, tolerating current antibiotics. Has no complaints at this time. - Current Medication List Current Medications: Active Medications Acetaminophen (Tylenol -) 650 mg PO Q6H PRN PRN Reason: PAIN LEVEL 1-5 Lactated Ringer's (Lactated Ringers Solution) 1,000 mls @ 125 mls/hr IV ASDIR ENRIQUE Last Admin: 04/10/18 11:12 Dose: Not Given Aztreonam 1 gm/ Dextrose 50 mls @ 100 mls/hr IVPB Q8H-IV ENRIQUE; Protocol Last Admin: 04/10/18 09:51 Dose: 100 mls/hr Clindamycin Phosphate (Cleocin 300 Mg Premix Ivpb) 300 mg in 50 mls @ 50 mls/ hr IVPB Q6H-IV ENRIQUE Last Admin: 04/10/18 15:40 Dose: 50 mls/hr Potassium Chloride/Dextrose/Sod Cl (D5-1/2ns+20 Meq Kcl -) 20 meq in 1,000 mls @ 83 mls/hr IV ASDIR ENRIQUE Last Admin: 04/10/18 05:44 Dose: 83 mls/hr Ibuprofen (Motrin -) 600 mg PO Q6H PRN PRN Reason: PAIN LEVEL 1-5 Morphine Sulfate (Morphine Sulfate) 4 mg IVPUSH Q4H PRN PRN Reason: PAIN LEVEL 7 - 10 Last Admin: 04/10/18 11:57 Dose: 4 mg Ondansetron HCl (Zofran Injection) 4 mg IVPUSH Q6H PRN PRN Reason: NAUSEA AND/OR VOMITING - Objective Vital Signs: Vital Signs Temperature 98.3 F 04/10/18 15:12 Pulse Rate 93 H 04/10/18 15:12 Respiratory Rate 18 04/10/18 15:12 Blood Pressure 109/60 04/10/18 15:12 O2 Sat by Pulse Oximetry (%) 100 04/09/18 21:00 Constitutional: Yes: No Distress, Calm Cardiovascular: Yes: Regular Rate and Rhythm Respiratory: Yes: Regular Gastrointestinal: Yes: Normal Bowel Sounds, Soft, Abdomen, Obese Wound/Incision: Yes: Dressing Dry and Intact Labs: CBC, BMP 04/08/18 06:00 04/08/18 06:00 INR, PTT INR 1.21 (0.83-1.09) H 04/07/18 13:02 Microbiology 04/07/18 13:13 Abscess Gram Stain - Final 04/07/18 13:13 Abscess Wound Culture - Preliminary Staphylococcus Coagulase Neg Beta Hem Streptococcus Group C 04/08/18 21:31 Breast - Left Gram Stain - Final 04/08/18 21:31 Breast - Left Wound Culture - Preliminary Pending Organism 04/08/18 21:20 Abscess Gram Stain - Final 04/08/18 21:31 Breast - Right Gram Stain - Final 04/08/18 21:31 Breast - Right Wound Culture - Preliminary NO GROWTH OBTAINED AFTER 24 HOURS INCUBATION, REINCUBATED. 04/08/18 21:30 Breast - Left GÉNESIS Preparation - Preliminary 04/08/18 21:30 Breast - Left Fungal Culture - Preliminary Problem List - Problems (1) Abscess of buttock, left Code(s): L02.31 - CUTANEOUS ABSCESS OF BUTTOCK (2) Abscess of right thigh Code(s): L02.415 - CUTANEOUS ABSCESS OF RIGHT LOWER LIMB (3) Hydradenitis Code(s): L73.2 - HIDRADENITIS SUPPURATIVA Assessment/Plan Hidraadenitis suppurativa/Abscesses s/p I+D - b/l mammary folds/Rt inner thigh/ Lt buttock -- f/u wound cultures -- cont. IV antibiotics -- f/u culture results continue wound care
--- NOTE | 2018-04-11 00:24 | PN ---
Progress Note, Physician History of Present Illness: Pt seen and examined 04/10/18 however note is being entered now - Current Medication List Current Medications: Active Medications Acetaminophen (Tylenol -) 650 mg PO Q6H PRN PRN Reason: PAIN LEVEL 1-5 Lactated Ringer's (Lactated Ringers Solution) 1,000 mls @ 125 mls/hr IV ASDIR ENRIQUE Last Admin: 04/10/18 21:21 Dose: Not Given Aztreonam 1 gm/ Dextrose 50 mls @ 100 mls/hr IVPB Q8H-IV ENRIQUE; Protocol Last Admin: 04/10/18 17:33 Dose: 100 mls/hr Clindamycin Phosphate (Cleocin 300 Mg Premix Ivpb) 300 mg in 50 mls @ 50 mls/ hr IVPB Q6H-IV ENRIQUE Last Admin: 04/10/18 21:21 Dose: 50 mls/hr Potassium Chloride/Dextrose/Sod Cl (D5-1/2ns+20 Meq Kcl -) 20 meq in 1,000 mls @ 83 mls/hr IV ASDIR ENRIQUE Last Admin: 04/10/18 21:44 Dose: 83 mls/hr Morphine Sulfate (Morphine Sulfate) 4 mg IVPUSH Q4H PRN PRN Reason: PAIN LEVEL 7 - 10 Last Admin: 04/10/18 11:57 Dose: 4 mg Ondansetron HCl (Zofran Injection) 4 mg IVPUSH Q6H PRN PRN Reason: NAUSEA AND/OR VOMITING - Objective Vital Signs: Vital Signs Temperature 98.8 F 04/10/18 21:00 Pulse Rate 86 04/10/18 21:00 Respiratory Rate 18 04/10/18 21:00 Blood Pressure 111/63 04/10/18 21:00 O2 Sat by Pulse Oximetry (%) 99 04/10/18 21:00 Constitutional: Yes: Well Nourished Neck: Yes: WNL, Supple Cardiovascular: Yes: WNL, Regular Rate and Rhythm Respiratory: Yes: WNL, Regular, CTA Bilaterally Gastrointestinal: Yes: WNL, Normal Bowel Sounds Musculoskeletal: Yes: Other (RT thigh oozing) Labs: CBC, BMP 04/08/18 06:00 04/08/18 06:00 INR, PTT INR 1.21 (0.83-1.09) H 04/07/18 13:02 Problem List - Problems (1) Abscess of buttock, left Assessment/Plan: Cont IV antibxs Cont wound care Code(s): L02.31 - CUTANEOUS ABSCESS OF BUTTOCK (2) Abscess of right thigh Assessment/Plan: Cont IV antibxs Cont wound care Code(s): L02.415 - CUTANEOUS ABSCESS OF RIGHT LOWER LIMB (3) Anemia Assessment/Plan: H/H stable Code(s): D64.9 - ANEMIA, UNSPECIFIED
[2018-04-11] MEDS: AZTREONAM 1 GM in DEXTROSE 5%-WATER - 50 ML IVPB SCH ×3 (01:20→17:03)
[2018-04-11] MEDS: CLINDAMYCIN 300 MG PREMIX IVPB 300 MG/50 ML BAG IVPB SCH ×4 (02:04→21:38)
[2018-04-11] MEDS ORDERED: PT OWN MED DRAWER 7, Y5N ONE ×2 (08:32→16:26)
--- NOTE | 2018-04-11 12:16 | PN ---
Progress Note, Physician History of Present Illness: Pt states she feels well. Denies pain. Dressings/packings changed. c/o mild breast fold/groin pruritis. No generalized rash, tolerating antibiotics. - Current Medication List Current Medications: Active Medications Acetaminophen (Tylenol -) 650 mg PO Q6H PRN PRN Reason: PAIN LEVEL 1-5 Clotrimazole (Lotrimin 1% Cream -) 1 applic TP BID ENRIQUE Lactated Ringer's (Lactated Ringers Solution) 1,000 mls @ 125 mls/hr IV ASDIR ENRIQUE Last Admin: 04/10/18 21:21 Dose: Not Given Aztreonam 1 gm/ Dextrose 50 mls @ 100 mls/hr IVPB Q8H-IV ENRIQUE; Protocol Last Admin: 04/11/18 10:14 Dose: 100 mls/hr Clindamycin Phosphate (Cleocin 300 Mg Premix Ivpb) 300 mg in 50 mls @ 50 mls/ hr IVPB Q6H-IV ENRIQUE Last Admin: 04/11/18 10:14 Dose: 50 mls/hr Potassium Chloride/Dextrose/Sod Cl (D5-1/2ns+20 Meq Kcl -) 20 meq in 1,000 mls @ 83 mls/hr IV ASDIR ENRIQUE Last Admin: 04/10/18 21:44 Dose: 83 mls/hr Morphine Sulfate (Morphine Sulfate) 4 mg IVPUSH Q4H PRN PRN Reason: PAIN LEVEL 7 - 10 Last Admin: 04/10/18 11:57 Dose: 4 mg Ondansetron HCl (Zofran Injection) 4 mg IVPUSH Q6H PRN PRN Reason: NAUSEA AND/OR VOMITING - Objective Vital Signs: Vital Signs Temperature 98.4 F 04/11/18 06:52 Pulse Rate 80 04/11/18 06:52 Respiratory Rate 20 04/11/18 06:52 Blood Pressure 97/58 L 04/11/18 06:52 O2 Sat by Pulse Oximetry (%) 99 04/10/18 21:00 Constitutional: Yes: No Distress, Calm Cardiovascular: Yes: Regular Rate and Rhythm Respiratory: Yes: Regular Gastrointestinal: Yes: Normal Bowel Sounds, Soft Genitourinary: Yes: WNL Extremities: Yes: WNL Edema: No Integumentary: Yes: Rash (breast fold/bilateral dry rash/hyperpigmentation) Wound/Incision: Yes: Dressing Dry and Intact, Other (Lt breast mild induration, no erythema/warmth/tenderness, no drainage) Neurological: Yes: Alert, Oriented Labs: CBC, BMP 04/08/18 06:00 04/08/18 06:00 INR, PTT INR 1.21 (0.83-1.09) H 04/07/18 13:02 Microbiology 04/07/18 13:13 Abscess Gram Stain - Final 04/07/18 13:13 Abscess Wound Culture - Preliminary Staphylococcus Coagulase Neg Beta Hem Streptococcus Group C 04/08/18 21:20 Abscess Gram Stain - Final 04/08/18 21:20 Abscess Wound Culture - Preliminary Strep Agalactiae Group B 04/08/18 21:31 Breast - Right Gram Stain - Final 04/08/18 21:31 Breast - Right Wound Culture - Final NO AEROBIC OR ANAEROBIC GROWTH OBTAINED. 04/08/18 21:31 Breast - Left Gram Stain - Final 04/08/18 21:31 Breast - Left Wound Culture - Preliminary Pending Organism Staphylococcus Coagulase Neg Pending Organism#2 04/08/18 21:30 Breast - Left GÉNESIS Preparation - Preliminary 04/08/18 21:30 Breast - Left Fungal Culture - Preliminary Problem List - Problems (1) Abscess of buttock, left Code(s): L02.31 - CUTANEOUS ABSCESS OF BUTTOCK (2) Abscess of right thigh Code(s): L02.415 - CUTANEOUS ABSCESS OF RIGHT LOWER LIMB (3) Hydradenitis Code(s): L73.2 - HIDRADENITIS SUPPURATIVA Assessment/Plan Hidradenitis suppurativa/Abscesses s/p I+D - b/l mammary folds/Rt inner thigh/ Lt buttock Intertrigo -- continue antibiotics -- f/u final wound culture results -- clotrimazole cream ordered, avoiding wound areas --continue wound care
[2018-04-11] MEDS: CLOTRIMAZOLE 1% CREAM 15 GM TUBE TP SCH ×2 (16:24→21:42)
--- NOTE | 2018-04-11 18:48 | PN ---
Progress Note, Physician History of Present Illness: Pt still has some oozing from wound - Current Medication List Current Medications: Active Medications Acetaminophen (Tylenol -) 650 mg PO Q6H PRN PRN Reason: PAIN LEVEL 1-5 Clotrimazole (Lotrimin 1% Cream -) 1 applic TP BID ENRIQUE Last Admin: 04/11/18 16:24 Dose: 1 applic Lactated Ringer's (Lactated Ringers Solution) 1,000 mls @ 125 mls/hr IV ASDIR ENRIQUE Last Admin: 04/10/18 21:21 Dose: Not Given Aztreonam 1 gm/ Dextrose 50 mls @ 100 mls/hr IVPB Q8H-IV ENRIQUE; Protocol Last Admin: 04/11/18 17:03 Dose: 100 mls/hr Clindamycin Phosphate (Cleocin 300 Mg Premix Ivpb) 300 mg in 50 mls @ 50 mls/ hr IVPB Q6H-IV ENRIQUE Last Admin: 04/11/18 16:24 Dose: 50 mls/hr Potassium Chloride/Dextrose/Sod Cl (D5-1/2ns+20 Meq Kcl -) 20 meq in 1,000 mls @ 83 mls/hr IV ASDIR ENRIQUE Last Admin: 04/10/18 21:44 Dose: 83 mls/hr Morphine Sulfate (Morphine Sulfate) 4 mg IVPUSH Q4H PRN PRN Reason: PAIN LEVEL 7 - 10 Last Admin: 04/10/18 11:57 Dose: 4 mg Ondansetron HCl (Zofran Injection) 4 mg IVPUSH Q6H PRN PRN Reason: NAUSEA AND/OR VOMITING - Objective Vital Signs: Vital Signs Temperature 99.5 F 04/11/18 17:22 Pulse Rate 88 04/11/18 17:22 Respiratory Rate 20 04/11/18 17:22 Blood Pressure 113/66 04/11/18 17:22 O2 Sat by Pulse Oximetry (%) 99 04/10/18 21:00 Neck: Yes: WNL, Supple Cardiovascular: Yes: WNL, Regular Rate and Rhythm Respiratory: Yes: WNL, Regular, CTA Bilaterally Gastrointestinal: Yes: WNL, Normal Bowel Sounds, Soft Musculoskeletal: Yes: Other ((+) draining from Rt thigh wounds) Labs: CBC, BMP 04/08/18 06:00 04/08/18 06:00 INR, PTT INR 1.21 (0.83-1.09) H 04/07/18 13:02 Problem List - Problems (1) Abscess of right thigh Assessment/Plan: Cont IV antibxs Cont wound care Code(s): L02.415 - CUTANEOUS ABSCESS OF RIGHT LOWER LIMB (2) Abscess of buttock, left Assessment/Plan: Cont IV antibxs Cont wound care Code(s): L02.31 - CUTANEOUS ABSCESS OF BUTTOCK (3) Anemia Assessment/Plan: H/H stable Code(s): D64.9 - ANEMIA, UNSPECIFIED (4) Hydradenitis Code(s): L73.2 - HIDRADENITIS SUPPURATIVA
[2018-04-12] MEDS: D5-1/2NS+20 MEQ KCL - 20 MEQ/1,000 ML INFUS.BAG IV SCH ×2 (01:45→05:56)
[2018-04-12] MEDS: AZTREONAM 1 GM in DEXTROSE 5%-WATER - 50 ML IVPB SCH ×2 (01:47→11:05)
[2018-04-12] MEDS: CLINDAMYCIN 300 MG PREMIX IVPB 300 MG/50 ML BAG IVPB SCH ×2 (03:12→10:16)
[2018-04-12] MEDS: LACTATED RINGERS SOLUTION 1,000 ML IV SCH (09:32)
[2018-04-12] MEDS ORDERED: PT OWN MED DRAWER 7, Y5N ONE (09:59)
[2018-04-12] MEDS: CLOTRIMAZOLE 1% CREAM 15 GM TUBE TP SCH (10:16)
--- NOTE | 2018-04-12 11:54 | PN ---
Progress Note, Physician History of Present Illness: stable doing well wounds healing well awaiting for final cx reports - Current Medication List Current Medications: Active Medications Acetaminophen (Tylenol -) 650 mg PO Q6H PRN PRN Reason: PAIN LEVEL 1-5 Clotrimazole (Lotrimin 1% Cream -) 1 applic TP BID ENRIQUE Last Admin: 04/12/18 10:16 Dose: 1 applic Lactated Ringer's (Lactated Ringers Solution) 1,000 mls @ 125 mls/hr IV ASDIR ENRIQUE Last Admin: 04/12/18 09:32 Dose: Not Given Aztreonam 1 gm/ Dextrose 50 mls @ 100 mls/hr IVPB Q8H-IV ENRIQUE; Protocol Last Admin: 04/12/18 11:05 Dose: 100 mls/hr Clindamycin Phosphate (Cleocin 300 Mg Premix Ivpb) 300 mg in 50 mls @ 50 mls/ hr IVPB Q6H-IV ENRIQUE Last Admin: 04/12/18 10:16 Dose: 50 mls/hr Potassium Chloride/Dextrose/Sod Cl (D5-1/2ns+20 Meq Kcl -) 20 meq in 1,000 mls @ 83 mls/hr IV ASDIR ENRIQUE Last Admin: 04/12/18 05:56 Dose: 83 mls/hr Morphine Sulfate (Morphine Sulfate) 4 mg IVPUSH Q4H PRN PRN Reason: PAIN LEVEL 7 - 10 Last Admin: 04/10/18 11:57 Dose: 4 mg Ondansetron HCl (Zofran Injection) 4 mg IVPUSH Q6H PRN PRN Reason: NAUSEA AND/OR VOMITING - Objective Vital Signs: Vital Signs Temperature 98.2 F 04/12/18 09:31 Pulse Rate 86 04/12/18 09:31 Respiratory Rate 84 H 04/12/18 06:00 Blood Pressure 133/85 04/12/18 09:31 O2 Sat by Pulse Oximetry (%) 98 04/11/18 21:00 Constitutional: Yes: No Distress, Calm Cardiovascular: Yes: Regular Rate and Rhythm Respiratory: Yes: Regular, CTA Bilaterally Gastrointestinal: Yes: Normal Bowel Sounds, Soft Musculoskeletal: Yes: Other Extremities: Yes: WNL Wound/Incision: Yes: Dressing Dry and Intact Neurological: Yes: Alert, Oriented Psychiatric: Yes: Alert, Oriented Labs: CBC, BMP 04/08/18 06:00 04/08/18 06:00 INR, PTT INR 1.21 (0.83-1.09) H 04/07/18 13:02 Assessment/Plan Problem List - Problems (1) Hydradenitis Code(s): L73.2 - HIDRADENITIS SUPPURATIVA (2) Chronic abscess of breast Code(s): N61.1 - ABSCESS OF THE BREAST AND NIPPLE (3) Abscess of buttock, left Code(s): L02.31 - CUTANEOUS ABSCESS OF BUTTOCK (4) Anemia Code(s): D64.9 - ANEMIA, UNSPECIFIED (5) Abscess of right thigh Code(s): L02.415 - CUTANEOUS ABSCESS OF RIGHT LOWER LIMB plan will change abx to oral await for cx reports wound care rest as per surgery
[2018-04-12] MEDS ORDERED: CLINDAMYCIN HCL 150 MG CAPSULE (FP) PO SCH (14:00)
--- NOTE | 2018-04-12 15:27 | PN ---
Progress Note, Physician - Current Medication List Current Medications: Active Medications Acetaminophen (Tylenol -) 650 mg PO Q6H PRN PRN Reason: PAIN LEVEL 1-5 Clindamycin HCl (Cleocin -) 300 mg PO TID [facility] [place] Last Admin: 04/12/18 13:35 Dose: 300 mg Clotrimazole (Lotrimin 1% Cream -) 1 applic TP BID [facility] [place] Last Admin: 04/12/18 10:16 Dose: 1 applic Potassium Chloride/Dextrose/Sod Cl (D5-1/2ns+20 Meq Kcl -) 20 meq in 1,000 mls @ 83 mls/hr IV ASDIR [facility] [place] Last Admin: 04/12/18 05:56 Dose: 83 mls/hr Morphine Sulfate (Morphine Sulfate) 4 mg IVPUSH Q4H PRN PRN Reason: PAIN LEVEL 7 - 10 Last Admin: 04/10/18 11:57 Dose: 4 mg Ondansetron HCl (Zofran Injection) 4 mg IVPUSH Q6H PRN PRN Reason: NAUSEA AND/OR VOMITING - Objective Vital Signs: Vital Signs Temperature 98.4 F 04/12/18 15:11 Pulse Rate 87 04/12/18 15:11 Respiratory Rate 18 04/12/18 15:11 Blood Pressure 102/53 L 04/12/18 15:11 O2 Sat by Pulse Oximetry (%) 100 04/12/18 09:00 Labs: CBC, BMP 04/08/18 06:00 04/08/18 06:00 INR, PTT INR 1.21 (0.83-1.09) H 04/07/18 13:02 Problem List - Problems (1) Abscess of right thigh Code(s): L02.415 - CUTANEOUS ABSCESS OF RIGHT LOWER LIMB (2) Hydradenitis Code(s): L73.2 - HIDRADENITIS SUPPURATIVA (3) Abscess of left thigh Code(s): L02.416 - CUTANEOUS ABSCESS OF LEFT LOWER LIMB
[2018-04-12 17:11] VITALS: BP 110/68; PULSE 86; TEMP 99.1
--- NOTE | 2018-04-12 17:41 | DS ---
Physical Examination Vital Signs: Vital Signs Temperature 99.1 F 04/12/18 17:09 Pulse Rate 86 04/12/18 17:09 Respiratory Rate 20 04/12/18 17:09 Blood Pressure 110/68 04/12/18 17:09 O2 Sat by Pulse Oximetry (%) 100 04/12/18 09:00 Constitutional: Yes: No Distress HENT: Yes: Atraumatic Neck: Yes: Supple Cardiovascular: Yes: Regular Rate and Rhythm Respiratory: Yes: CTA Bilaterally Gastrointestinal: Yes: Normal Bowel Sounds Extremities: Yes: WNL Integumentary: Yes: Other (wounds are covered with dressing) Neurological: Yes: Alert, Oriented Labs: CBC, BMP 04/08/18 06:00 04/08/18 06:00 Discharge Summary Reason For Visit: ABSCESS OF RIGHT THIGH Current Active Problems Abscess of buttock, left (Acute) Abscess of right thigh (Acute) Anemia (Acute) Chronic abscess of breast (Acute) Hydradenitis (Acute) Condition: Fair - Instructions Diet, Activity, Other Instructions: wound care and dressing change daily as per surgeons instructions Referrals: Marsha Tirado MD [Primary Care Provider] - - Home Medications Comprehensive Discharge Medication List: Ambulatory Orders Clindamycin [Cleocin -] 300 mg PO Q6HPO #20 capsule 04/12/18 wound care /dressing change daily
== END 2018-04-12 18:21 | disposition home or self-care (01) | DRG 581 ==
LOC: JER 10:42 → JERBED 15:26 → J8W 17:23
PROVIDERS: ADMIT Internal Medicine; ATTEND Internal Medicine
PROC: 0H9V0ZZ Drainage of Bilateral Breast, Open Approach (ICD-10-PCS; 2018-04-08)
PROC: 0J9L0ZZ Drainage of Right Upper Leg Subcutaneous Tissue and Fascia, Open Approach (ICD-10-PCS; principal; 2018-04-08 15:00)
DX: L73.2 Hidradenitis suppurativa (principal); L02.415 Cutaneous abscess of right lower limb; L02.31 Cutaneous abscess of buttock; N61.1 Abscess of the breast and nipple; L30.4 Erythema intertrigo; E66.9 Obesity, unspecified; Z68.36 Body mass index [BMI] 36.0-36.9, adult
CPT/HCPCS: 36415; 80053; 84703; 85025; 85610; 86850; 86900; 86901; 87070; 87076; 87077; 87102; 87116; 87186; 87205; 87206; 87210; 94760; 99284-25